=== PATIENT | male | born 1960 | race Native Hawaiian/Other Pacific Islander ===

== ENCOUNTER 2017-05-12 10:01 | Outpatient (CLI) | payer OTHER ==
[~2017-05-12 10:01] MED LIST: AMOX875T8 PO; CLON1TAB18 PO; FIBER625 MG OR; GABA300C2 PO; HYDR-3182 PO; HYDR25TA15 PO; INDO25CA21 PO; LYRICA75 MG OR; NORTRIPTYLIN10 MG OR; PHEN100C15 PO; PYRIDIUM200 MG OR; TIZA4TAB5 PO; TRIAMCINOLON0.12 TOP; TYLENOL325 MG OR; WARFARIN7.5 MG PO
[2017-05-13] MEDS ORDERED: GABA400C2 PO (03:13)
[2017-05-13] MEDS ORDERED: JANTOVEN7.5 MG PO (03:17)
[2017-05-13] MEDS ORDERED: TRIAMCINOLON0.12 TOP (03:19)
[2017-05-13] MEDS ORDERED: DRISDOL50000 UNT PO (03:25)
[2017-05-13] MEDS ORDERED: B121000 MCG PO (06:51)
== END 2017-05-12 10:07 | disposition short-term general hospital (02) ==
LOC: AMB 10:01
DX: R41.82 Altered mental status, unspecified (principal)
CPT/HCPCS: A0425; A0427

== ENCOUNTER 2017-05-12 10:07 | Inpatient (IN) | payer OTHER ==
[2017-05-12] VITALS (7 sets, daily range): BP systolic 118–160; BP diastolic 76–108; TEMP 99.4–101.1; Ht 175.3 cm; Wt 110.3 kg
[~2017-05-12] VITALS: Ht 175.3 cm; Wt 110.3 kg
[2017-05-12 11:01] LABS: PLATELET COUNT 231 K/uL (142-355)
[2017-05-12 11:07] LABS: POTASSIUM 4.5 mmol/L (3.6-5.2)
[2017-05-12 12:38] LABS: PARTIAL THROMBOPLASTIN TIME 27.6 SECONDS (24.5-33.6)
--- NOTE | 2017-05-12 20:21 | NUR ---
05/12/[address] @ [address] ADAMS NOTIFIED TO COME LOOK AT PT'S BITES/SORES. PT'S DAUGHTER CALLED TO COME TO HOSPITAL TO ANSWER QUESTIONS FOR PT'S ADMISSION PAPERWORK, SINCE PT UNABLE TO ANSWER AT THIS TIME.
[2017-05-13] VITALS: BP 80/60; TEMP 99
--- NOTE | 2017-05-13 02:34 | NUR ---
05/13/17 AT 0145'S MANUAL B/P IS 88/60, NO S/S NOTED, WILL MONITOR CLOSELY.
--- NOTE | 2017-05-13 02:35 | NUR ---
05/13/17 AT 0030PT SEEMS SLIGHTLY CONFUSED AT TIMES, REORIENTED NEEDED, PT'S DAUGHTER REMAINS AT BEDSIDE, WILL MONITOR CLOSELY.
[2017-05-13] MEDS ORDERED: GABA400C2 PO (03:13)
[2017-05-13] MEDS ORDERED: JANTOVEN7.5 MG PO (03:17)
[2017-05-13] MEDS ORDERED: TRIAMCINOLON0.12 TOP (03:19)
[2017-05-13] MEDS ORDERED: DRISDOL50000 UNT PO (03:25)
--- NOTE | 2017-05-13 03:53 | NUR ---
PT'S MANUAL BLOOD PRESSURE TAKEN AT THIS TIME, 102/70. WILL CONTINUE TO MONITOR CLOSELY.
[2017-05-13 04:51] LABS: PLATELET COUNT 158 K/uL (142-355)
[2017-05-13 05:02] LABS: POTASSIUM 3.7 mmol/L (3.6-5.2)
--- NOTE | 2017-05-13 06:35 | NUR ---
05/12/17 AT 2300NOTE PT HAVING MUSCLE SPASMS IN LEGS, HIM AND DAUGHTER STATE HE HAS THE SPASMS OFTEN AT HOME.
--- NOTE | 2017-05-13 06:43 | NUR ---
05/13/17 AT 0450RATE OF CURRENT BAG OF NS IV CHANGED TO 200ML/HR PER NEW ORDER.
[2017-05-13] MEDS ORDERED: B121000 MCG PO (06:51)
[2017-05-13 08:00] VITALS: BP 95/57; TEMP 97.4
[2017-05-13 12:00] VITALS: BP 127/70; TEMP 98.2
[2017-05-13 16:00] VITALS: BP 123/70; TEMP 97.7
[2017-05-13 20:00] VITALS: BP 125/80; TEMP 97.9
[2017-05-14 00:18] VITALS: BP 106/70; TEMP 99
[2017-05-14 04:00] VITALS: BP 142/81; TEMP 98.6
[2017-05-14 07:16] LABS: PLATELET COUNT 142 K/uL (142-355)
[2017-05-14 07:56] LABS: POTASSIUM 3.9 mmol/L (3.6-5.2); SODIUM 141 mmol/L (136-145)
[2017-05-14 08:39] VITALS: BP 137/82; TEMP 98.6
[2017-05-14 12:00] VITALS: BP 141/80; TEMP 98.4
[2017-05-14 16:00] VITALS: BP 127/63; TEMP 98
--- NOTE | 2017-05-14 18:29 | NUR ---
05-12-17 1515 RECIEVED PT FROM ER MULTIPLE LESION NOTED TO ENTIRE BODY. 3X5 BRUISE ON UPPER LEFT ARM. 10X9 OPEN LESION/BLISTER ON LEFT HIP SCALDED AREA THAT LOOKS SCABED OVER NOTED ON BELT LINE. MULIPLE SMALL AREAS TAHT RESEMBLE ANT BITES ON RIGHT AND LEFT LEG. 2 1X1 OPEN LESIONS ON RIGHT UPPER LEG. 3X2 OPEN LESION ON RIGHT LEG BELOW KNEE. 1X1 OPEN LESION ON RIGHT LOWER LEG. 1/2 X1/2 OPEN LESION ON RIGHT LOWER LEG. 3X2 OPEN LESION ON LEFT LOWER LEG. 2 1X1/2 OPEN LESION ON LEFT FOOT. 3X2 OPEN LESION ON BACK OF LOWER LEFT LEG. ALL AREAS REDDENED. NO DRAINING NOTED AT THIS TIME.
[2017-05-14 20:00] VITALS: BP 157/69; TEMP 98.5
[2017-05-15 00:21] VITALS: BP 149/90; TEMP 97.9
[2017-05-15 06:37] LABS: PLATELET COUNT 156 K/uL (142-355)
[2017-05-15 06:50] LABS: SODIUM 142 mmol/L (136-145)
[2017-05-15 08:00] VITALS: BP 143/76; TEMP 97.8
[2017-05-15 12:00] VITALS: BP 131/84; TEMP 98.8
[2017-05-15 16:00] VITALS: BP 145/74; TEMP 98.6
[2017-05-15 20:00] VITALS: BP 154/76; TEMP 99
[2017-05-16] VITALS: BP 140/71; TEMP 98.5
[2017-05-16 06:14] LABS: PLATELET COUNT 171 K/uL (142-355); POTASSIUM 3.9 mmol/L (3.6-5.2); SODIUM 138 mmol/L (136-145)
[2017-05-16 08:00] VITALS: BP 137/86; TEMP 98.6
[2017-05-16 16:00] VITALS: BP 113/77; TEMP 99
[2017-05-16 20:00] VITALS: BP 139/81; TEMP 98.8
[2017-05-17] VITALS: BP 135/74; TEMP 98.7
[2017-05-17 04:00] VITALS: BP 101/74; TEMP 98.2
[2017-05-17 05:14] LABS: PLATELET COUNT 131 K/uL (142-355)
[2017-05-17 05:33] LABS: POTASSIUM 3.7 mmol/L (3.6-5.2); SODIUM 137 mmol/L (136-145)
[2017-05-17 16:00] VITALS: BP 129/66; TEMP 98
--- NOTE | 2017-05-17 18:05 | NUR ---
ZAMAN CATHETER REMOVED PER DR ORDERS, 10ML SALINE DRAWN FROM CATHETER BUBBLE, 2000ML CLEAR YELLOW URINE IN BAG, PT TOLERATED WELL. NAD NOTED. WILL MONITOR
[2017-05-17 20:07] VITALS: BP 136/87; TEMP 98.4
[2017-05-18] VITALS: BP 116/66; TEMP 98.7
[2017-05-18 04:00] VITALS: BP 131/86; TEMP 98.6
[2017-05-18 07:00] LABS: PLATELET COUNT 180 K/uL (142-355)
[2017-05-18 07:25] LABS: POTASSIUM 4.6 mmol/L (3.6-5.2); SODIUM 137 mmol/L (136-145)
[2017-05-18 20:00] VITALS: BP 162/67; TEMP 97.8
[2017-05-19] VITALS: BP 115/74; TEMP 97.6
[2017-05-19 04:00] VITALS: BP 131/68; TEMP 97.6
[2017-05-19 06:20] LABS: PLATELET COUNT 208 K/uL (142-355)
[2017-05-19 07:20] LABS: POTASSIUM 4.3 mmol/L (3.6-5.2); SODIUM 138 mmol/L (136-145)
[2017-05-19 08:28] VITALS: BP 116/67; TEMP 98
[2017-05-19 11:54] VITALS: BP 122/76; TEMP 97.4
[2017-05-19 20:00] VITALS: BP 123/73; TEMP 98.3
[2017-05-20] VITALS: BP 119/71; TEMP 97.8
[2017-05-20 06:44] LABS: PLATELET COUNT 227 K/uL (142-355)
[2017-05-20 08:49] LABS: POTASSIUM 3.8 mmol/L (3.6-5.2); SODIUM 140 mmol/L (136-145)
[2017-05-20 09:12] VITALS: BP 103/62; TEMP 98
[2017-05-20 12:06] VITALS: BP 135/71; TEMP 97.7
[2017-05-20 16:00] VITALS: BP 116/76; TEMP 98.6
[2017-05-20 17:08] LABS: PARTIAL THROMBOPLASTIN TIME 26.2 SECONDS (24.5-33.6)
--- NOTE | 2017-05-20 19:00 | NUR ---
05/13/17 @0900 MORNING ASSESSMENT COMPLETE. 7.5X12 BRUISE ON UPPER LEFT ARM. 25X22.5 OPEN LESION/BLISTER ON LEFT HIP. SCALDED AREA THAT LOOKS SCABBED OVER NOTED ON BELT LINE. MULTIPLE SMALL AREAS THAT RESEMBLE ANT BITES ON RIGHT AND LEFT LEG. 2 2.5X2.5CM OPEN LESIONS ON RIGHT UPPER LEG. 7X5 OPEN LESION ON RIGHT LOWER LEG. 2.5X2.5CM OPEN LESION ON RIGHT LOWER LEG. 1X1CM LESION OPEN ON RIGHT LOWER LEG. 7.5X5CM OPEN LESION ON LEFT LOWER LEG. 2.5X2.5CM OPEN LESION ON LEFT FOOT. 7X5CM OPEN LESION ON BACK OF LOWER LEFT LEG. ALL AREAS REDDENED. SMALL AMOUNT OF DRAINAGE NOTED ON LESIONS ON BACK OF LEFT LEG AND LESION ON HIP.
--- NOTE | 2017-05-20 19:11 | NUR ---
05/14/17 @0900 MORNING ASSESSMENT COMPLETE. 7.5X12 BRUISE ON LEFT UPPER ARM. 25X2.5 OPEN LESION/BLISTER ON LEFT HIP. SCALDED AREA THAT IS SCABBED OVER BELT LINE. MULTIPLE SMALL AREAS THAT RESEMBLE ANT BITES ON RIGHT AND LEFT LEGS. 2 2.5X2.5 OPEN LESIONS ON RIGHT UPPER LEGS. 7X5 OPEN LESSIONS ON RIGHT LEG BELOW KNEE. 2.5X2.5 OPEN LESSION ON RIGHT LOWER LEG. 1X1 OPEN LESSION ON RIGHT LOWER LEG. 7.5X5 OPEN LESSION ON LEFT LOWER LEG. 2 2.5X2.5 OPEN LESSION ON LEFT FOOT. 7X5 OPEN LESSION ON BACK OF LOWER LEFT LEG. ALL AREAS REDDENED. SMALL AMOUNT OF DRAINAGE NOTED ON LESSION ON BACK OF LEFT LEG AND ON LESSION ON LEFT HIP. WOUND CULTURE FROM BOTH AREAS TOOK AND SENT TO LAB.
[2017-05-20 20:00] VITALS: BP 117/69; TEMP 97.8
[2017-05-21] VITALS: BP 121/76; TEMP 97.9
[2017-05-21 07:16] LABS: PLATELET COUNT 218 K/uL (142-355)
[2017-05-21 07:47] LABS: SODIUM 142 mmol/L (136-145)
[2017-05-21 08:12] LABS: PARTIAL THROMBOPLASTIN TIME 27.2 SECONDS (24.5-33.6)
[2017-05-21 08:18] VITALS: BP 117/77; TEMP 97.5
[2017-05-21 12:00] VITALS: BP 122/62
[2017-05-21 16:00] VITALS: BP 122/71; TEMP 97.7
== END 2017-05-21 19:53 | disposition swing bed (61) | DRG 101 ==
LOC: ED 10:07 → MED/SURG 13:55
PROVIDERS: Emergency Medicine; Student in an Organized Health Care Education/Training Program
DX: G40.89 Other seizures (principal); M62.82 Rhabdomyolysis; D68.2 Hereditary deficiency of other clotting factors; R31.9 Hematuria, unspecified; R80.8 Other proteinuria; T63.421A Toxic effect of venom of ants, accidental (unintentional), initial encounter; Y92.092 Bedroom in other non-institutional residence as the place of occurrence of the external cause; D72.828 Other elevated white blood cell count; M21.332 Wrist drop, left wrist; S81.812A Laceration without foreign body, left lower leg, initial encounter; S40.212A Abrasion of left shoulder, initial encounter; S70.212A Abrasion, left hip, initial encounter; X58.XXXA Exposure to other specified factors, initial encounter; Y93.89 Activity, other specified; S70.222A Blister (nonthermal), left hip, initial encounter
CPT/HCPCS: 36415; 80053; 80185; 80307; 81000; 82550; 82553; 83605; 83735; 84484; 85027; 85379; 85610; 85730; 87070; 87077; 87185; 87186; 87205; 93005; 96365; 96366; 96367; 96368; 96375; 99284; G0479; J0696; J0744; J1100; J1165; J1885; J2175; J2270; J2543; J3490; L3908; Q2009

== ENCOUNTER 2017-05-21 19:14 | Inpatient (IN) | payer OTHER ==
[~2017-05-21] VITALS: Ht 175.3 cm; Wt 109.9 kg
[~2017-05-21 19:14] MED LIST changes: +B121000 MCG PO; +DRISDOL50000 UNT PO; +GABA400C2 PO; +JANTOVEN7.5 MG PO
[2017-05-22 03:49] VITALS: BP 110/71; TEMP 97.5; Ht 175.3 cm; Wt 109.9 kg
[2017-05-22 12:00] VITALS: BP 116/73; TEMP 98.7
[2017-05-22 20:00] VITALS: BP 120/65; TEMP 98.4
[2017-05-23 08:00] VITALS: BP 94/65; TEMP 97.5
[2017-05-23 20:00] VITALS: BP 113/61; TEMP 98.1
[2017-05-24 08:00] VITALS: BP 106/66; TEMP 97.9
--- NOTE | 2017-05-25 | NUR ---
REPORT GIVEN TO LUCILLE HYDE RN.
[2017-05-25 08:00] VITALS: BP 105/70; TEMP 97.4
[2017-05-25 20:17] VITALS: BP 103/46; TEMP 98.9
[2017-05-26 08:00] VITALS: BP 113/74; TEMP 97.7
[2017-05-26 20:00] VITALS: BP 114/78; TEMP 97.7
[2017-05-27 08:00] VITALS: BP 101/67; TEMP 97.6
[2017-05-27 20:00] VITALS: BP 146/70; TEMP 98
[2017-05-28 08:00] VITALS: BP 118/70; TEMP 97.9
[2017-05-28 20:00] VITALS: BP 102/62; TEMP 98.3
[2017-05-29 08:00] VITALS: BP 92/42; TEMP 97.8
[2017-05-29 20:00] VITALS: BP 107/63; TEMP 97.7
[2017-05-30 08:00] VITALS: BP 115/73; TEMP 98.5
--- NOTE | 2017-05-30 08:57 | NUR ---
PATIENT IS BEING DISCHARGED HOME TODAY WITH HOME HEALTH, PT AND OT.
--- NOTE | 2017-05-30 18:25 | NUR ---
D/C ISTRUCTIONS SIGNED AND GIVEN. Pt. EXIT OUT OF FRONT ENTRANCE VIA W/C.
== END 2017-05-30 18:26 | disposition home or self-care (01) | DRG 556 ==
LOC: MED/SURG 19:14
PROVIDERS: ADMIT Internal Medicine
DX: M62.81 Muscle weakness (generalized) (principal); G40.89 Other seizures; T63.421A Toxic effect of venom of ants, accidental (unintentional), initial encounter
CPT/HCPCS: 85610; 95910

== ENCOUNTER 2017-06-11 11:25 | Outpatient (CLI) | payer OTHER | END 2017-06-11 12:30 | disposition home or self-care (01) | LOC: LAB 11:25 | DX: N30.80 Other cystitis without hematuria (principal); M79.1 Myalgia; R56.9 Unspecified convulsions | CPT/HCPCS: 80185 ==

== ENCOUNTER 2017-09-12 14:46 | Emergency (ER) | payer OTHER ==
[~2017-09-12] VITALS: Ht 180.3 cm; Wt 109.8 kg
[2017-09-12 16:38] LABS: PLATELET COUNT 183 K/uL (142-355)
[2017-09-12 16:46] LABS: POTASSIUM 3.9 mmol/L (3.6-5.2); SODIUM 138 mmol/L (136-145)
[2017-09-12 18:15] VITALS: BP 151/83; TEMP 98.1
[2017-12-04] MEDS ORDERED: TAMS0.4C PO (05:10)
[2017-12-04] MEDS ORDERED: SPRITAM500 MG PO (05:16)
== END 2017-09-12 18:15 | disposition home or self-care (01) ==
LOC: ED 14:46
PROVIDERS: Emergency Medicine
PROC: 0T9B70Z Drainage of Bladder with Drainage Device, Via Natural or Artificial Opening (ICD-10-PCS; principal; 2017-09-12)
DX: N40.1 Benign prostatic hyperplasia with lower urinary tract symptoms (principal); R33.8 Other retention of urine; R30.0 Dysuria
CPT/HCPCS: 36415; 51702; 80053; 81000; 84153; 85027; 99283

== ENCOUNTER 2017-09-13 08:09 | Emergency (ER) | payer OTHER ==
[~2017-09-13] VITALS: Ht 177.8 cm; Wt 110.7 kg
[2017-09-13 08:15] VITALS: BP 153/95; TEMP 98
[2017-12-04] MEDS ORDERED: TAMS0.4C PO (05:10)
[2017-12-04] MEDS ORDERED: SPRITAM500 MG PO (05:16)
== END 2017-09-13 08:40 | disposition home or self-care (01) ==
LOC: ED 08:09
PROC: 0T2BX0Z Change Drainage Device in Bladder, External Approach (ICD-10-PCS; principal; 2017-09-13)
DX: T83.038A Leakage of other urinary catheter, initial encounter (principal)
CPT/HCPCS: 51702; 99281

== ENCOUNTER 2017-12-03 19:54 | Outpatient (CLI) | payer OTHER ==
[2017-12-04] MEDS ORDERED: TAMS0.4C PO ×2 (05:10)
[2017-12-04] MEDS ORDERED: SPRITAM500 MG PO ×2 (05:16)
== END 2017-12-03 20:02 | disposition short-term general hospital (02) ==
LOC: AMB 19:54
DX: R41.82 Altered mental status, unspecified (principal); R56.9 Unspecified convulsions
CPT/HCPCS: A0425; A0427

== ENCOUNTER 2017-12-03 20:14 | Inpatient (IN) | payer OTHER ==
[~2017-12-03] VITALS: Ht 180.3 cm; Wt 108.2 kg
[2017-12-03 20:26] VITALS: BP 110/89; TEMP 97.8
[2017-12-03 20:53] LABS: POTASSIUM 3.8 mmol/L (3.6-5.2)
[2017-12-03 20:59] LABS: PLATELET COUNT 233 K/uL (142-355)
[2017-12-03 23:40] VITALS: BP 146/99
[2017-12-04] VITALS (19 sets, daily range): BP systolic 110–176; BP diastolic 68–99; TEMP 98–100; Ht 180.3 cm; Wt 108.2 kg
[2017-12-04] MEDS ORDERED: TAMS0.4C PO ×2 (05:10)
[2017-12-04] MEDS ORDERED: SPRITAM500 MG PO ×2 (05:16)
[2017-12-04 09:11] LABS: PLATELET COUNT 218 K/uL (142-355)
[2017-12-05] VITALS (17 sets, daily range): BP systolic 94–130; BP diastolic 62–100; TEMP 97–98.8
[2017-12-05 07:55] LABS: PLATELET COUNT 177 K/uL (142-355)
[2017-12-05 08:46] LABS: POTASSIUM 3.7 mmol/L (3.6-5.2)
[2017-12-06] VITALS (16 sets, daily range): BP systolic 10–166; BP diastolic 58–97; TEMP 97.7–98.9
[2017-12-06 06:00] LABS: PLATELET COUNT 160 K/uL (142-355)
[2017-12-06 06:28] LABS: POTASSIUM 3.7 mmol/L (3.6-5.2)
[2017-12-07] VITALS: BP 126/75; TEMP 98
[2017-12-07 04:00] VITALS: BP 195/92; TEMP 98
[2017-12-07 06:46] LABS: PLATELET COUNT 182 K/uL (142-355)
[2017-12-07 06:58] LABS: POTASSIUM 3.5 mmol/L (3.6-5.2)
[2017-12-07 12:55] VITALS: BP 121/72; TEMP 98.6
[2017-12-07 17:38] VITALS: BP 139/85; TEMP 98.6
[2017-12-07 20:00] VITALS: BP 168/73; TEMP 98
[2017-12-08] VITALS: BP 136/61; TEMP 97.8
[2017-12-08 04:00] VITALS: BP 111/71; TEMP 98.7
[2017-12-08 07:02] LABS: PLATELET COUNT 172 K/uL (142-355)
[2017-12-08 09:00] LABS: POTASSIUM 3.1 mmol/L (3.6-5.2)
[2017-12-08 13:41] VITALS: BP 140/79; TEMP 97.7
== END 2017-12-08 18:00 | disposition home or self-care (01) | DRG 101 ==
LOC: ED 20:14 → ICU 12-04 01:30 → MED/SURG 12-06 15:38
PROVIDERS: Emergency Medicine
DX: G40.802 Other epilepsy, not intractable, without status epilepticus (principal); N40.0 Benign prostatic hyperplasia without lower urinary tract symptoms; I10 Essential (primary) hypertension; R39.2 Extrarenal uremia; D72.828 Other elevated white blood cell count; B37.2 Candidiasis of skin and nail; R77.9 Abnormality of plasma protein, unspecified; F19.90 Other psychoactive substance use, unspecified, uncomplicated; G47.09 Other insomnia; J02.9 Acute pharyngitis, unspecified; R14.1 Gas pain; Z91.14 Patient's other noncompliance with medication regimen
CPT/HCPCS: 36415; 51702; 80053; 80185; 80307; 81000; 82542; 83036; 83735; 85027; 85610; 87015; 87045; 87205; 87328; 87329; 87899; 93005; 94760; 96366; 96372; 96374; 99284; J1650; J2060; J3411; J3490

== ENCOUNTER 2020-09-11 08:36 | Outpatient (CLI) | payer OTHER ==
[~2020-09-11 08:36] MED LIST changes: +SPRITAM500 MG PO; +TAMS0.4C PO
== END 2020-09-11 19:04 | disposition home or self-care (01) ==
LOC: MRI 08:36
DX: M17.0 Bilateral primary osteoarthritis of knee (principal); M25.562 Pain in left knee; M25.561 Pain in right knee; R26.89 Other abnormalities of gait and mobility; M23.222 Derangement of posterior horn of medial meniscus due to old tear or injury, left knee

== ENCOUNTER 2022-11-28 07:40 | Emergency (ER) | payer OTHER ==
[~2022-11-28] VITALS: Ht 180.3 cm; Wt 110.7 kg
[2022-11-28 07:40] VITALS: TEMP 98.1
[2022-11-28 14:10] VITALS: BP 128/86
== END 2022-11-28 14:10 | disposition home or self-care (01) ==
LOC: ED 07:40
DX: M54.89 Other dorsalgia (principal); R10.2 Pelvic and perineal pain; W18.39XA Other fall on same level, initial encounter; Y92.098 Other place in other non-institutional residence as the place of occurrence of the external cause
CPT/HCPCS: 96374; 96375; 99284; J1170; J2270; J2405